=== PATIENT | male | born 1960 | race Caucasian/White ===

== ENCOUNTER 2017-10-22 08:46 | Observation (INO) | payer BC ==
[2017-10-20 15:33] VITALS: BP 140/73
[2017-10-20 15:43] LABS: BASOPHILS % (AUTO) 0.8 % (0.0-5.0); EOSINOPHILS % (AUTO) 2.1 % (0.0-8.0); HEMATOCRIT 43.7 % (42-54); LYMPHOCYTES % (AUTO) 23.6 % (21.0-51.0); MEAN CORPUSCULAR HEMOGLOBIN 30.9 pg (27.0-33.0); MEAN CORPUSCULAR HGB CONC 34.3 g/dL (32.0-36.0); MONOCYTES % (AUTO) 9.8 % (3.0-13.0); NEUTROPHILS % (AUTO) 63.7 % (40.0-77.0); PLATELET COUNT (AUTO) 231 K/uL (130-400); RED BLOOD CELL COUNT(AUTO) 4.86 MIL/uL (4.50-6.20); RED CELL DISTRIBUTION WIDTH 13.7 % (11.0-15.5); WHITE BLOOD COUNT (AUTO) 5.8 K/uL (4.8-10.8)
[2017-10-20 15:44] LABS: APPEARANCE,URINE Clear (CLEAR); BILIRUBIN,URINE Negative (NEGATIVE); COLOR,URINE Yellow (YELLOW); GLUCOSE, URINE (UA) Negative (NEGATIVE); KETONES,URINE Negative (NEGATIVE); LEUKOCYTE ESTERASE ,URINE Negative (NEGATIVE); NITRATE,URINE Negative (NEGATIVE); OCCULT BLOOD,URINE Negative (NEGATIVE); PROTEIN,URINE Negative (NEGATIVE); UROBILINOGEN,URINE 0.2 mg/dL (0.2-1.0)
[2017-10-20 15:56] LABS: INR 0.98 (0.85-1.15); PARTIAL THROMBOPLASTIN TIME 30.4 SEC (26.3-35.5); PROTHROMBIN TIME 10.3 SEC (9.6-11.6)
[2017-10-20 16:07] LABS: CREATININE 1.2 mg/dL (0.5-1.5); POTASSIUM 4.2 mmol/L (3.5-5.1)
[~2017-10-22] VITALS: Ht 190.5 cm; Wt 150.7 kg
[~2017-10-22 08:46] MED LIST: METO-408 PO; MONT10TA24 PO; OLME40TA18 PO; OMEP40CA37 PO; ROSU10TA35 PO; ZOLP10TA6 PO
[2017-10-22 09:00] VITALS: BP 127/69
[2017-10-22] MEDS ORDERED: SODIUM CHLORIDE 0.9% 500ML 500 ML IV ONE (09:32)
[2017-10-22] MEDS ORDERED: HEPARIN SODIUM 1000UNIT/ML 10ML VIAL ONE ×2 (10:29→11:39)
[2017-10-22] MEDS ORDERED: ISOVUE-370 50ML VIAL IV ONE ×2 (10:29→11:53)
[2017-10-22] MEDS ORDERED: LIDOCAINE HCL 2% 20ML ONE (10:29)
[2017-10-22] MEDS ORDERED: IOPAMIDOL-370 100 ML VIAL IV ONE (10:29)
[2017-10-22] MEDS ORDERED: CLOPIDOGREL BISULFATE 300 MG TAB ONE (11:59)
[2017-10-22] MEDS ORDERED: ASPIRIN 325MG EC TAB 325 MG TABLET.DR PO ONE (11:59)
[2017-10-22 12:30] VITALS: BP 138/75
[2017-10-22] MEDS ORDERED: TRAMADOL HCL 50 MG TABLET PO PRN (12:30)
[2017-10-22 14:48] LABS: INR 1.01 (0.85-1.15); PARTIAL THROMBOPLASTIN TIME 62.4 SEC (26.3-35.5); PROTHROMBIN TIME 10.6 SEC (9.6-11.6)
[2017-10-22 16:00] VITALS: BP 113/65
[2017-10-22 16:17] LABS: PARTIAL THROMBOPLASTIN TIME 34.1 SEC (26.3-35.5); PROTHROMBIN TIME 10.5 SEC (9.6-11.6)
[2017-10-22 19:29] VITALS: BP 137/77
[2017-10-22] MEDS: METOPROLOL TARTRATE 25 MG TAB PO SCH (20:52)
[2017-10-22] MEDS ORDERED: MONTELUKAST SODIUM 10 MG TAB PO SCH (21:00)
[2017-10-22] MEDS ORDERED: ZOLPIDEM TARTRATE 5 MG TAB PO SCH (21:00)
[2017-10-22] MEDS ORDERED: LOSARTAN 100 MG TABLET PO SCH (21:00)
[2017-10-22] MEDS ORDERED: ATORVASTATIN CALCIUM 20 MG TABLET PO SCH (21:00)
[2017-10-22] MEDS ORDERED: PANTOPRAZOLE SODIUM 40 MG TABLET.DR PO SCH (21:00)
[2017-10-23 00:19] VITALS: BP 111/62
[2017-10-23 04:01] VITALS: BP 118/70
[2017-10-23] MEDS ORDERED: ASPI-1197 PO (06:50)
[2017-10-23] MEDS ORDERED: CLOP75TA32 PO (06:50)
[2017-10-23 07:35] VITALS: BP 118/74
[2017-10-23] MEDS: METOPROLOL TARTRATE 25 MG TAB PO SCH (08:58)
[2017-10-23] MEDS ORDERED: CLOPIDOGREL BISULFATE 75 MG TAB PO SCH (09:00)
[2017-10-23] MEDS ORDERED: ASPIRIN 81MG TAB.CHEW PO SCH (09:00)
== END 2017-10-23 10:23 | disposition home or self-care (01) ==
LOC: DAH 08:46 → DAHIP 08:47 → DAH 08:47 → 2DH 12:33
PROVIDERS: ADMIT Internal Medicine Cardiovascular Disease; ATTEND Internal Medicine Cardiovascular Disease
DX: I25.119 Atherosclerotic heart disease of native coronary artery with unspecified angina pectoris (principal); I10 Essential (primary) hypertension; E78.5 Hyperlipidemia, unspecified
CPT/HCPCS: 36415 ×2; 71045; 80048; 81003; 85025; 85347; 85610 ×3; 85730 ×3; 93005; 93458; A4606; C1769; C1874 ×2; C1887; C1894; C9600; G0378 ×26; J1644 ×2; J3490; J7040; Q9967 ×2

== ENCOUNTER 2021-02-02 06:12 | Day surgery (SDC) | payer BC ==
[2021-01-31 13:12] LABS: BASOPHILS % (AUTO) 1.4 % (0.0-5.0); EOSINOPHILS % (AUTO) 3.4 % (0.0-8.0); HEMATOCRIT 46.8 % (42-54); LYMPHOCYTES % (AUTO) 33.5 % (21.0-51.0); MEAN CORPUSCULAR HEMOGLOBIN 30.6 pg (27.0-33.0); MEAN CORPUSCULAR HGB CONC 33.3 g/dL (32.0-36.0); MEAN CORPUSCULAR VOLUME 91.9 fL (79-99); MONOCYTES % (AUTO) 12.3 % (3.0-13.0); NEUTROPHILS % (AUTO) 48.8 % (40.0-77.0); PLATELET COUNT (AUTO) 206 K/uL (130-400); RED BLOOD CELL COUNT(AUTO) 5.09 MIL/uL (4.50-6.20); RED CELL DISTRIBUTION WIDTH 12.8 % (11.0-15.5); WHITE BLOOD COUNT (AUTO) 6.5 K/uL (4.8-10.8)
[2021-01-31 13:17] LABS: APPEARANCE,URINE Clear (CLEAR); BILIRUBIN,URINE Negative (NEGATIVE); COLOR,URINE Yellow (YELLOW); GLUCOSE, URINE (UA) Negative (NEGATIVE); KETONES,URINE Negative (NEGATIVE); LEUKOCYTE ESTERASE ,URINE Negative (NEGATIVE); NITRATE,URINE Negative (NEGATIVE); OCCULT BLOOD,URINE Negative (NEGATIVE); PROTEIN,URINE Negative (NEGATIVE); UROBILINOGEN,URINE 0.2 mg/dL (0.2-1.0)
[2021-01-31 13:19] LABS: CREATININE 1.1 mg/dL (0.5-1.5); POTASSIUM 4.5 mmol/L (3.5-5.1)
[2021-01-31 13:21] LABS: INR 0.99 (0.85-1.15); PROTHROMBIN TIME 10.8 SEC (9.6-11.6)
[2021-01-31 13:22] LABS: PARTIAL THROMBOPLASTIN TIME 29.7 SEC (26.3-35.5)
[2021-02-01 13:14] VITALS: BP 148/81
[~2021-02-02] VITALS: Ht 182.9 cm; Wt 165.7 kg
[2021-02-02] VITALS (10 sets, daily range): BP systolic 120–152; BP diastolic 57–87
[~2021-02-02 06:12] MED LIST changes: +AMLO-257 PO; +ASCO500C18 PO; +ASPI-1197 PO; +CHOL100046 PO; +ISOS30TA92 PO; +MELA1TAB17 PO; -METO-408 PO; +METO25TA6 PO; -MONT10TA24 PO; +MONT10TA32 PO; +NITR0.4T50 SL; +OMEP40CA13 PO; -OMEP40CA37 PO; -ROSU10TA35 PO; +ROSU20TA31 PO; +SODIUM CHLORIDE 0.9% 1000ML 1,000 ML IV ONE; +SODIUM CHLORIDE 0.9% 500ML 500 ML IV SCH; +ZINC220T4 PO; +[UNRECOGNIZED DRUG - OTHER] PO
[2021-02-02] MEDS ORDERED: HEPARIN SODIUM 1000UNIT/ML 10ML VIAL ONE (07:08)
[2021-02-02] MEDS ORDERED: IOHEXOL 350 MG/ML 100ML INFUS..BTL IV ONE (07:08)
[2021-02-02] MEDS ORDERED: NITROGLYCERIN 2 MG/VIAL VIAL IV ONE (07:08)
[2021-02-02] MEDS ORDERED: LIDOCAINE HCL 2% 20ML ONE (07:09)
[2021-02-02] MEDS ORDERED: IOHEXOL-350 50ML VIAL IV ONE (07:09)
[2021-02-02] MEDS ORDERED: MIDAZOLAM HCL 1 MG/ML 2ML VIAL ONE (07:37)
== END 2021-02-02 13:00 | disposition home or self-care (01) ==
LOC: DAH 06:12
PROVIDERS: ATTEND Internal Medicine Cardiovascular Disease
DX: I25.118 Atherosclerotic heart disease of native coronary artery with other forms of angina pectoris (principal); I10 Essential (primary) hypertension; E78.5 Hyperlipidemia, unspecified; K21.9 Gastro-esophageal reflux disease without esophagitis; Z79.01 Long term (current) use of anticoagulants; Z79.82 Long term (current) use of aspirin; Z79.899 Other long term (current) drug therapy
CPT/HCPCS: 36415; 71045; 80048; 81003; 85025; 85610; 85730; 93005; 93458; A4215; A4216; A4221; A4222; A4223 ×3; A4606; A4663; C1760; C1894; J1644; J2250; J3490 ×2; J7030; Q9965; Q9967 ×2; 99156; 99157